=== PATIENT | female | born 1990 | race African-American/Black ===

== ENCOUNTER 2017-12-08 12:25 | Emergency (ER) | payer SELFPAY ==
[~2017-12-08] VITALS: Ht 177.8 cm; Wt 54.0 kg
[2017-12-08 12:29] VITALS: BP 115/80; PULSE 78; TEMP 37; O2SAT 100; Ht 177.8 cm; Wt 54.0 kg
[2017-12-08] MEDS ORDERED: SODIUM CHLORIDE 0.9% 1000ML 1,000 ML IV STA (12:52)
--- NOTE | 2017-12-08 13:39 | EMERGENCY ROOM VISIT NOTE ---
History First contact with patient: 12:31 Chief Complaint: SYNCOPE Stated Complaint: FAINTED Nursing Triage Summary: Pt reports while cooking at approx 1200 she passed out. pt reports at this time "i feel very weak." pt reports she arrive to [facility] from [facility] last week. History of Present Illness The patient is a 27 year old female who presents to the Emergency Room with complaints of a syncopal episode. The patient states that at 12 noon she was cooking and fell like she lost her hearing and then her vision and then she sat down. Her sister was with her and she states that she fell forward and passed out momentarily. The patient did not hit her head. The patient states that her hearing and vision slowly is coming back to normal. The patient denies any headache. She states at first she felt dizzy but that is improving. She states she just feels very weak. The patient denies any heart palpitations, chest pain or shortness of breath. The patient denies ever passing out in the past. She denies any history of any cardiac disorder. The patient states that she had a 12 hour flight from [facility] on Thursday. She has not had any recent leg pain. Patient's only significant medical history is sickle cell. The patient does not have a [employer] driver's license. Review of Systems 10 system review was performed and was negative unless stated otherwise history of present illness. Past Medical/Surgical History Sickle cell Social History Smoking Status: Never Smoker Alcohol Use: none Drug Use: none Marital Status: single Occupation Status: [employer] student Physical Exam Vital Signs Date Time Temp Pulse Resp B/P (MAP) Pulse Ox O2 Delivery O2 Flow Rate FiO2 18 12:29 37.0 78 18 115/80 100 Room Air Physical Exam GENERAL: 27-year-old female appears in no acute distress. MENTAL Status: Alert and oriented 3. EYES: PERRLA. EOMs intact. Funduscopic exam unremarkable. EARS: Canals clear. TMs without fluid level noted. NECK: Supple, no lymphadenopathy noted. No carotid bruits noted. LUNGS: Clear auscultation without wheezes rales or rhonchi. CARDIAC: Regular rate and rhythm without murmur. Pulses is full and equal throughout. ABDOMEN: Positive bowel sounds all 4 quadrants. Soft, nontender to palpation without organomegaly or masses. NEURO:Cranial nerves two through 12 intact. Cerebellar function intact with [id number]. Fine motor intact with alternating finger motions. Medical Decision & Procedures Laboratory Results Test 12/08/17 12:52 ED Course The patient was evaluated. IV access was attempted and was not successful. She refused to have IV team attempt or any other diagnostic procedures or testing. The patient signed out AMA. Risks were reviewed with the patient before discharge. Medical Decision Differential diagnosis includes vasovagal syncope, cardiac arrhythmia, electrolyte imbalance, neuro neoplasm [place] Drug Monitoring Program Search Results: patient reviewed within database Medication Reconcilliation Current Medication List: was personally reviewed by me Blood Pressure Screening Patient's blood pressure: Normal blood pressure Impression Primary Impression: Syncope Departure Information Dispostion Against Medical Advice Condition GOOD Referrals No Doctor, Assigned (PCP) Patient Instructions [facility] Additional Instructions You refused a workup for near syncopal episode. Since we do not know what caused the syncopal episode this may occur again. Problem Qualifiers Primary Impression: Syncope Syncope type: unspecified Qualified Codes: R55 - Syncope and collapse
== END 2017-12-08 13:34 | disposition home or self-care (01) ==
LOC: C.EDB 12:27 → C.EDC 13:34
DX: R55 Syncope and collapse (principal)